=== PATIENT | male | born 1980 | race Two or more races ===

== ENCOUNTER 2017-09-12 22:12 | Emergency (ER) | payer SELFPAY ==
[2017-09-12] MEDS: LIDOCAINE 1% PF 2 ML VIAL. INJ (23:30)
== END 2017-09-13 00:15 | disposition home or self-care (01) ==
LOC: ER 22:12
DX: S02.81XA Fracture of other specified skull and facial bones, right side, initial encounter for closed fracture (principal); S01.81XA Laceration without foreign body of other part of head, initial encounter; Y08.89XA Assault by other specified means, initial encounter; Y93.89 Activity, other specified; Y92.89 Other specified places as the place of occurrence of the external cause; Y99.8 Other external cause status
CPT/HCPCS: 12001; 70450; 70486; 99284-25